=== PATIENT | female | born 1995 | race Caucasian/White ===

== ENCOUNTER 2019-02-28 12:16 | Inpatient (IN) | payer MEDICAID ==
[2019-02-28] MEDS ORDERED: OXYTOCIN 30 UNITS/LR 500 ML IV ×2 (12:30)
[2019-02-28] MEDS ORDERED: BUTORPHANOL 2 MG INJ IV (12:30)
[2019-02-28] MEDS ORDERED: BUTORPHANOL 1 MG INJ IV (12:30)
[2019-02-28] MEDS ORDERED: MISOPROSTOL 200 MCG TAB PR (12:30)
[2019-02-28] MEDS ORDERED: METHYLERGONOVINE 0.2 MG INJ IM (12:30)
[2019-02-28] MEDS ORDERED: IBUPROFEN 600 MG TAB PO (12:30)
[2019-02-28] MEDS ORDERED: LIDOCAINE 1% (MPF) 30 ML INJ INJ (12:30)
[2019-02-28] MEDS ORDERED: CARBOPROST 250 MCG INJ IM (12:30)
[2019-02-28] MEDS: LACTATED RINGER'S 1,000 ML IV ×2 (13:24→18:14)
[2019-02-28 13:39] LABS: ADD MAN DIFF? NO
[2019-02-28 13:41] LABS: WHITE BLOOD COUNT 10.1 10^3/ul (4.8-10.8)
[2019-02-28 13:42] LABS: BASOPHILS % 0.3 % (0.0-2.0); EOSINOPHILS # 0.1 10^3/ul (0.0-0.5); HEMATOCRIT 36.6 % (37.0-47.0); HEMOGLOBIN 12.1 g/dl (12.0-16.0); LYMPHOCYTES # 1.5 10^3/ul (0.8-2.9); LYMPHOCYTES % 14.6 % (15.0-51.0); MEAN CORPUSCULAR HGB CONC 33.1 g/dl (32.0-37.0); MEAN CORPUSCULAR VOLUME 90.6 fl (82.0-101.0); MEAN PLATELET VOLUME 10.1 fl (7.4-10.4); MONOCYTE # 0.8 10^3/ul (0.3-0.9); MONOCYTES % 8.1 % (0.0-11.0); NEUTROPHIL # 7.6 10^3/ul (1.6-7.5); NEUTROPHILS % 75.1 % (39.0-77.0); PLATELET COUNT 253 10^3/UL (140-415); RED BLOOD COUNT 4.04 10^6/ul (4.20-5.40); RED CELL DISTRIBUTION WIDTH 13.5 % (11.5-14.5)
[2019-02-28 14:01] LABS: AMPHETAMINE/METHAMPHETAMINE Negative (NEGATIVE); BARBITURATES Negative (NEGATIVE); BENZODIAZEPINES Negative (NEGATIVE); CANNABINOIDS Negative (NEGATIVE); COCAINE Negative (NEGATIVE); OPIATES Negative (NEGATIVE)
[2019-02-28 14:03] LABS: INR 0.96; PARTIAL THROMBOPLASTIN TIME 27.4 Sec (23.0-35.0); PROTIME 12.9 Sec (11.9-14.9)
[2019-02-28 14:29] LABS: HEPATITIS B SURFACE ANTIGEN NEGATIVE (NEGATIVE)
[2019-02-28] MEDS: MISOPROSTOL 50 MCG CAPSULE PO ×3 (14:51→21:00)
[2019-02-28 19:25] LABS: RAPID PLASMA REAGIN NONREACTIVE (NR)
[2019-03-01] MEDS: MISOPROSTOL 50 MCG CAPSULE PO ×6 (01:00→21:00)
[2019-03-01] MEDS: OXYTOCIN 30 UNITS/LR 500 ML IV (01:09)
[2019-03-01] MEDS: LACTATED RINGER'S 1,000 ML IV ×5 (01:26→21:18)
[2019-03-01] MEDS ORDERED: ZOLPIDEM 5 MG TAB PO (03:00)
[2019-03-01] MEDS ORDERED: ONDANSETRON 4 MG INJ IV (03:00)
[2019-03-01] MEDS ORDERED: NALOXONE (0.4 MG/ML) INJ IV (03:00)
[2019-03-01] MEDS ORDERED: KETOROLAC 30 MG INJ IV (03:00)
[2019-03-01] MEDS ORDERED: HYDROmorphONE 0.5 MG/0.5 ML SYG IV ×2 (03:00)
[2019-03-01] MEDS: FENTAnyl 2MCG/ML-ROPIV 0.2% 100 ML BAG EPI ×2 (11:52→21:45)
[2019-03-01] MEDS ORDERED: BETAMET NA PHOS/AC(6 MG/ML) 2 ML INJ SYG IM (18:30)
[2019-03-01] MEDS: DIPHENHYDRAMINE 50 MG INJ IV (20:40)
[2019-03-01] MEDS ORDERED: MISOPROSTOL 50 MCG CAPSULE PO (21:00)
[2019-03-02] MEDS: MISOPROSTOL 50 MCG CAPSULE PO ×4 (01:00→13:00)
[2019-03-02] MEDS: LACTATED RINGER'S 1,000 ML IV ×2 (05:16→12:02)
[2019-03-02] MEDS: FENTAnyl 2MCG/ML-ROPIV 0.2% 100 ML BAG EPI (07:00)
[2019-03-02] MEDS: MINERAL OIL 30ML CUP PO (07:01)
[2019-03-02] MEDS: ACETAMINOPHEN 325 MG TAB PO (11:27)
[2019-03-02] MEDS: OXYTOCIN 30 UNITS/LR 500 ML IV ×2 (12:49→17:47)
[2019-03-02] MEDS: MINERAL OIL LIGHT 10 ML VIAL TOP (12:58)
[2019-03-02] MEDS: DEXTROSE 5%-LR 1,000 ML IV (16:07)
[2019-03-02] MEDS: LACTATED RINGER'S 1,000 ML IV* (16:22)
[2019-03-02] MEDS ORDERED: ZOLPIDEM 5 MG TAB PO (16:30)
[2019-03-02] MEDS ORDERED: METHYLERGONOVINE 0.2 MG INJ IM (16:30)
[2019-03-02] MEDS ORDERED: MISOPROSTOL 200 MCG TAB PR (16:30)
[2019-03-02] MEDS ORDERED: CARBOPROST 250 MCG INJ IM (16:30)
[2019-03-02] MEDS ORDERED: ONDANSETRON 4 MG INJ IV (16:30)
[2019-03-02] MEDS ORDERED: OXYTOCIN 30 UNITS/LR 500 ML IV (16:30)
[2019-03-02] MEDS ORDERED: ACETAMINOPHEN 325 MG TAB PO (16:30)
[2019-03-02] MEDS ORDERED: DIPHENHYDRAMINE 50 MG INJ IV (16:30)
[2019-03-02] MEDS: WITCH HAZEL/GLYCERIN PAD PR (16:38)
[2019-03-02] MEDS: BENZOCAINE 20% 56 ML SPRAY TOP (16:38)
[2019-03-02] MEDS: IBUPROFEN 600 MG TAB PO (17:39)
[2019-03-02] MEDS: LANOLIN HPA 1 PKT TOP (17:42)
[2019-03-02] MEDS: DIBUCAINE 1% 30 GM OINT TOP (17:42)
[2019-03-02] MEDS: OXYCODONE/ASPIRIN (4.88/325) TAB PO (18:05)
[2019-03-03] MEDS: IBUPROFEN 600 MG TAB PO ×5 (00:09→22:58)
[2019-03-03] MEDS: DEXTROSE 5%-LR 1,000 ML IV (01:13)
[2019-03-03] MEDS: LACTATED RINGER'S 1,000 ML IV* (01:13)
[2019-03-03 08:42] LABS: ADD MAN DIFF? NO
[2019-03-03 08:46] LABS: WHITE BLOOD COUNT 15.1 10^3/ul (4.8-10.8)
[2019-03-03 08:46] LABS: BASOPHILS % 0.3 % (0.0-2.0); EOSINOPHILS # 0.2 10^3/ul (0.0-0.5); EOSINOPHILS % 1.5 % (0.0-7.0); HEMATOCRIT 34.5 % (37.0-47.0); HEMOGLOBIN 11.4 g/dl (12.0-16.0); LYMPHOCYTES # 2.1 10^3/ul (0.8-2.9); LYMPHOCYTES % 13.9 % (15.0-51.0); MEAN CORPUSCULAR HEMOGLOBIN 29.8 pg (29.0-33.0); MEAN CORPUSCULAR VOLUME 90.1 fl (82.0-101.0); MEAN PLATELET VOLUME 10.2 fl (7.4-10.4); MONOCYTE # 1.1 10^3/ul (0.3-0.9); NEUTROPHIL # 11.6 10^3/ul (1.6-7.5); NEUTROPHILS % 76.8 % (39.0-77.0); PLATELET COUNT 221 10^3/UL (140-415); RED BLOOD COUNT 3.83 10^6/ul (4.20-5.40); RED CELL DISTRIBUTION WIDTH 13.7 % (11.5-14.5)
[2019-03-03] MEDS: SENNA/DOCUSATE NA (8.6MG/50MG) TAB PO (23:05)
[2019-03-04] MEDS: IBUPROFEN 600 MG TAB PO ×2 (06:25→12:54)
[2019-03-04] MEDS: MEASLES,MUMPS,RUBELLA VACCINE INJ SC* (07:46)
[2019-03-04] MEDS: LANOLIN HPA 1 PKT TOP (09:46)
[2019-03-04] MEDS: SENNA/DOCUSATE NA (8.6MG/50MG) TAB PO (09:46)
[2019-03-04] MEDS: DIPHTH/TET/ACEL PERTUSS (ADULT) 0.5 ML VIAL IM* (09:47)
[2019-03-04] MEDS: MAGNESIUM HYDROXIDE 30ML CUP PO (13:38)
== END 2019-03-04 18:56 | disposition home or self-care (01) | DRG 807 ==
LOC: PP1 03-02 16:49 → L-D 12:16
PROC: 10E0XZZ Delivery of Products of Conception, External Approach (ICD-10-PCS; principal; 2019-03-01)
PROC: 0W8NXZZ Division of Female Perineum, External Approach (ICD-10-PCS; 2019-03-01)
PROC: 3E033VJ Introduction of Other Hormone into Peripheral Vein, Percutaneous Approach (ICD-10-PCS; 2019-03-01)
DX: O48.0 Post-term pregnancy (principal); Z37.0 Single live birth; Z3A.40 40 weeks gestation of pregnancy
CPT/HCPCS: 76815; 80307; 85025; 85610; 85730; 86592; 86850; 86900; 86901; 87340; 90715; 99464